=== PATIENT | female | born 1965 | race African-American/Black ===

== ENCOUNTER → 2020-08-02 | Outpatient (CLI) | payer OTHER ==
--- NOTE | ~2020-08-02 | P ---
[facility] [place] [address] PROCEDURE REPORT Name: GABRIELLA SLADE KATIE Room #: REG LEONILAKevan Littlejohn#: [id number] Admission: 08/02/20 Attend Phys: Russell Benavides MD Discharge: Date of : 67 Report #: [id number] THIS REPORT FOR: cc: Ana Mccollum MD,Ana Benavides,Russell Barrera MD ~ CC: Ana Benavides PROCEDURE: Implantable loop recorder insertion. PREOPERATIVE DIAGNOSIS: Atrial fibrillation. POSTOPERATIVE DIAGNOSIS: Atrial fibrillation. DESCRIPTION OF PROCEDURE: The patient underwent informed consent. She was prepped and draped in a standard fashion. I injected lidocaine at the incision site, incision was made. The device was injected under the skin. R waves were satisfactory. The single layer of 3-0 suture was performed. Surgical glue was placed on the skin and a dressing was placed. The implanted device was a [employer] Reveal model #LNQ11, serial #[id number]. CONCLUSION: Successful implantation of an implantable loop recorder. By: 0811 [id number] Russell Benavides MD /nt
[2020-08-02 11:52] VITALS: BP 113/55
== END | disposition home or self-care (01) ==
LOC: CATH 08:17
PROVIDERS: ATTEND Internal Medicine Cardiovascular Disease
DX: I48.91 Unspecified atrial fibrillation (principal); Z79.899 Other long term (current) drug therapy

== ENCOUNTER → 2021-07-11 | Outpatient (CLI) | payer BC, OTHER ==
[2021-07-11 11:23] VITALS: BP 111/61
--- NOTE | 2021-07-17 11:31 | P ---
[facility] [place] [address] PROCEDURE REPORT Name: GABRIELLA SLADE FEBRUARY Room #: REG ZOFIA Viry.#: [id number] Admission: 07/11/21 Attend Phys: Russell Benavides MD Discharge: Date of : 67 Report #: [id number] THIS REPORT FOR: cc: Ana Mccollum MD,Ana Benavides,Russell Barrera MD ~ DATE OF SERVICE: 07/11/2021 PROCEDURE: Explantation of a loop recorder. PREOPERATIVE DIAGNOSIS: Implantable loop recorder battery at end of service. POSTOPERATIVE DIAGNOSIS: Implantable loop recorder battery at end of service. DESCRIPTION OF PROCEDURE: The patient underwent informed consent. She was prepped in a standard fashion. I injected lidocaine at the prior incision site. Incision was made. Device was removed. A single suture was performed and there were no procedure-related complications. CONCLUSION: Successful explantation of implantable loop recorder. <ELECTRONICALLY SIGNED> By: Russell Benavides MD 07/17/21 1131 [id number] Russell Benavides MD /nt
== END | disposition home or self-care (01) ==
LOC: CATH 07:41
PROVIDERS: ATTEND Internal Medicine Cardiovascular Disease
DX: Z45.09 Encounter for adjustment and management of other cardiac device (principal)